=== PATIENT | female | born 1990 | race Caucasian/White ===

== ENCOUNTER 2019-11-30 20:27 | Emergency (ER) | payer BC ==
[~2019-11-30] VITALS: Ht 165.1 cm; Wt 101.7 kg
[2019-11-30] MEDS ORDERED: ondansetron 4mg rapidly disintigrating tab PO ONE (22:50)
[2019-11-30] MEDS ORDERED: normal saline 1000ML IV soln IVB ONE (23:00)
[2019-11-30] MEDS ORDERED: ketorolac trometh. 30mg/ml inj. IV ONE (23:00)
[2019-11-30 23:39] VITALS: BP 126/63
== END 2019-12-01 00:15 | disposition home or self-care (01) ==
LOC: ER 20:28
DX: J10.1 Influenza due to other identified influenza virus with other respiratory manifestations (principal); Z88.2 Allergy status to sulfonamides
CPT/HCPCS: 87502; 87503; 96374; 99283; J1885; J7030; 99284